=== PATIENT | female | born 1950 | race Caucasian/White ===

== ENCOUNTER → 2017-11-25 | Outpatient (CLI) | payer OTHER, BC ==
--- NOTE | 2017-11-25 13:06 | DIAGNOSTIC IMAGING REPORT ---
R WRIST MIN 3 VIEWS ROUTINE, R HAND MIN 3 VIEWS ROUTINE CLINICAL HISTORY: Fall. Right hand and wrist pain. COMPARISON STUDY: None. FINDINGS: Dorsal soft tissue swelling. Slight irregularity at the mid shaft of the fifth metacarpal. This favors an old, healed fracture. No acute fracture or dislocation within the right hand or right wrist. 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 IMPRESSION: 1. No acute fracture or dislocation within the right hand or right wrist. 2. Dorsal soft tissue swelling within the hand. Electronically signed by: Eliezer Chester M.D. 11/25/2017 1:05 PM Dictated Date/Time: 11/25/2017 12:50 PM
== END | disposition home or self-care (01) ==
LOC: C.RADBC 12:13
PROVIDERS: ATTEND Nurse Practitioner
DX: M79.641 Pain in right hand (principal); Z91.81 History of falling; M79.89 Other specified soft tissue disorders

== ENCOUNTER → 2017-12-03 | Outpatient (CLI) | payer OTHER, BC ==
--- NOTE | 2017-12-03 12:37 | DIAGNOSTIC IMAGING REPORT ---
RIGHT HAND 3 VIEWS CLINICAL HISTORY: Right hand pain. FINDINGS: 3 views of the right hand are compared to study dated 11/25/2017. The skeletal structures are osteopenic. No fracture is seen. There is degenerative narrowing at the radiocarpal articulation. Mild osteoarthritic change is seen at the first carpometacarpal and metacarpophalangeal joints. Mild osteoarthritic change is also seen involving the interphalangeal joints, distal greater than proximal. No bony erosion is identified. The overlying soft tissues are within normal limits. IMPRESSION: Osteopenia and arthritic change as above. No fracture is seen. Electronically signed by: Kvng Colvin M.D. 12/03/2017 12:36 PM Dictated Date/Time: 12/03/2017 12:34 PM
== END | disposition home or self-care (01) ==
LOC: C.RDSM 11:28
PROVIDERS: ATTEND Family Medicine
DX: M79.641 Pain in right hand (principal); M85.841 Other specified disorders of bone density and structure, right hand